=== PATIENT | female | born 1965 | race Hispanic/Latino ===

== ENCOUNTER → 2024-02-04 10:53 | Outpatient (REF) | payer OTHER, SELFPAY ==
--- NOTE | 2024-02-04 11:22 | PN.DIAED06 ---
Meal Plans - Regular
- Meal Plan
Diabetic Meal Plan Name: 1400 calories
Breakfast - Total Carbohydrate (grams): 30
Breakfast - Starch Carbohydrate: 0
Breakfast - Fruit Carbohydrate: 0
Breakfast - Milk Carbohydrate: 0
Breakfast - Nonstarchy Vegetables: Yes
Breakfast - Meat/Protein: 1
Breakfast - Fat: 2
Morning Snack - Total Carbohydrate (grams): 15
Morning Snack - Starch Carbohydrate: 0
Morning Snack - Fruit Carbohydrate: 0
Morning Snack - Milk Carbohydrate: 0
Morning Snack - Nonstarchy Vegetables: Yes
Morning Snack - Meat/Protein: 0.5
Morning Snack - Fat: 0
Lunch - Total Carbohydrate (grams): 30
Lunch - Starch Carbohydrate: 0
Lunch - Fruit Carbohydrate: 0
Lunch - Milk Carbohydrate: 0
Lunch - Nonstarchy Vegetables: Yes
Lunch - Meat/Protein: 2
Lunch - Fat: 1
Afternoon Snack - Total Carbohydrate (grams): 15
Afternoon Snack - Starch Carbohydrate: 0
Afternoon Snack - Fruit Carbohydrate: 0
Afternoon Snack - Milk Carbohydrate: 0
Afternoon Snack - Nonstarchy Vegetables: Yes
Afternoon Snack - Meat/Protein: 0.5
Afternoon Snack - Fat: 0
Dinner - Total Carbohydrate (grams): 30
Dinner - Starch Carbohydrate: 0
Dinner - Fruit Carbohydrate: 0
Dinner - Milk Carbohydrate: 0
Dinner - Nonstarchy Vegetables: Yes
Dinner - Meat/Protein: 2
Dinner - Fat: 1
Evening Snack - Total Carbohydrate (grams): 15
Evening Snack - Starch Carbohydrate: 0
Evening Snack - Fruit Carbohydrate: 0
Evening Snack - Milk Carbohydrate: 0
Evening Snack - Nonstarchy Vegetables: Yes
Evening Snack - Meat/Protein: 0
Evening Snack - Fat: 0
--- NOTE | 2024-02-04 12:42 | PN.DIAED02 ---
Referral
Referred For: Diabetes Self-Management Training
PHI Release Authorization Form Signed: Yes
Care Plan
- Education Needs
Patient Education Needs: Diabetes disease process, Monitoring, Physical activity, Nutritional management
Recommended Diabetes Training Program based on assessment: Individual Appointment
- Plan of Care
Plan of Care:
Soraida chaudhari as a 'holdover' patient, recently diagnosed w/T2DM, A1C 6.6%. Interested in outpt DSME classes. States her insurance prefers either the One TOuch or the Contour Next. Provided with and instructions given on the Contour NExt EZ
glucometer. Initially hesitant to stick herself, she returned demonstrated well and felt 'the stick wasn't that bad'. lancing device set at 2 required much pumping so suggest dialing up to 3. Result 96 mg/dl pre lunch. Aware of proper testing
technique, testing pattern (2x/day) and expected results. Handout with this information provided as well as log sheet. She has an RX for the test strips and lancets from her PCP. Discussed macronutrients and role in glucose metabolism. Provided with
1400 maicol ADA meal plan. She does subscribe to [employer], choosing mostly vegetarian options. She will have this for dinner and for lunch the following day. She has eliminated some of her food items, discussed that she can work these into her meal
plan as it is not sustainable to deprive oneself. For example, she eliminated 2 tsp (9 CHO) from her morning cappuccino which she has with a homemade celery,kailash, [place] and apple juice.(15 gm CHO). Remind her that she will need protein with each
meal and snack, she is limited as she only eats fish, doesn't like tofu, yogurt or cottage cheese. She will try adding some protein powder to her juice. Handout on snack options given.For exercise, she takes her large dog for a walk daily, has a
rowing machine which she is currently not using. She will attempt to start off using it twice weekly. Phone number provided for follow up questions and will send her information in February for DSME classes strting in April.
== END ==
LOC: DES 10:53
PROVIDERS: ATTENDING PHYSICIAN Family Medicine
DX: E11.9 Type 2 diabetes mellitus without complications (principal)
CPT/HCPCS: 99078

== ENCOUNTER → 2024-05-08 12:00 | Outpatient (REF) | payer OTHER, SELFPAY ==
--- NOTE | 2024-04-07 09:08 | PN.DIAED02 ---
Referral
DSME Class Series Code: [id number]
Referred For: Diabetes Self-Management Training
PHI Release Authorization Form Signed: Yes
Patient Problems:
Current Active Problems
Problem Status Onset
Type 2 diabetes mellitus
Demographic
(1) Type 2 diabetes mellitus
Status: Acute Code(s): E11.9 - Type 2 diabetes mellitus without complications
Patient's primary language-: Bulgarian
Education: Advanced college degree
Occupation: Professional (social media designer)
Hours Worked/Week: 20-40 (40)
Shift: Day
- Social
Primary Support Person: Self
Primary Care Takers: Self
Living Arrangements: Self
- Learning Methods
Preferred Method: Group discussion
Barriers to Learning: None
Glycemic Control
- Blood Glucose Monitoring Assessment
Date: 04/06/24
Blood glucose monitoring at home: Yes
Monitor Brands: [employer] (Contour Next)
Frequency: 2x per day
Time: fasting, after breakfast, after lunch, after dinner
- Hemoglobin A1c
Date: 01/17/24
A1C Percentage (%): 6.6
Medical History of Diabetes
Family Diabetes History: Other (paternal aunts and uncles)
Previous Diabetes Education: No
Previous visit with Dietitian: No
Measures
- Anthropometrics
Height: 5 ft 4 in
Actual Weight: 148 lb 8 oz
- Blood Pressure / Pulse
Blood pressure: 108/69
- Diabetes Management
Medical Management for Diabetes: Complete physical exam (01/2024), Dental exam (01/2024), Dilated eye exam (09/30/23), Flu Vaccination (fall 2022), Other (Covid 19 vaccine: 12/06/20,01/01/21 and 08/08/21)
Self-Care
- Tobacco Usage
Do you now, or have you ever smoked?: Never smoked
- Alcohol & Drugs Usage
Drinks Alcohol: Yes
Amount/day: Other (2 drinks/week)
- Meals & Dining
Meals & Dining: Patient skips meals: No, Food Intolerance / Allergy: No, Cultural / Worship Dietary Needs: No
Primary Senior Medical Billing Specialist: Self
Dining Out Frequency: 1-3x per week (3)
- Physical Activity
Physical Limitation: No
Patient participates in physical Activity: Yes
Activity Types: walking
Duration: 10-20 minutes (20)
Frequency: 6-7x per week (7)
Intensity: Easy
- Patient-Self Assessment
Diabetes Knowledge: Poor
Feelings About Diabetes: Adaptation
General Health: Good
Importance of Health: Extremely
Stress Level: Medium
Barriers to Diabetes Management: Family/friends (social activities)
Depression Survey Score: 0
Care Plan
- Education Needs
Patient Education Needs: Diabetes disease process, Chronic complications, Acute complications, Medication, Monitoring, Physical activity, Psychosocial Adjustment, Nutritional management, Goal setting & problem solving
Recommended Diabetes Training Program based on assessment: Outpatient Diabetes Education Program
- Plan of Care
Plan of Care:
Soraida known to me from 02/04/24, seen as a holdover patient. A1C 6.6%, no medications. She has the Contour NExt glucometer and brought in her logsheet. All FBS results are within range and she has been testing 2 hr after breakfast only with all
results within range. Reviewed the testing pattern again, and she will add checking after lunch and after dinner. She asked if she could reduce from testing everyday, recommend continue testing 2x/day but can decrease to 3-4 times/week as her
numbers are all within range. Goals established, will add free weights and the rowing machine (at her home) to her routine. She is having difficulty with finding the time but realizes she can use the machine and weights while watching TV. Also
stating that she is tired and challenging to get up in the morning, she does stay up until midnight, suggest trying to go to bed earlier to get the appropriate hours of sleep. Directions to classroom given.
--- NOTE | 2024-04-07 10:16 | PN.DIAED04 ---
Education Record
- Education Record
Class Attended: Class 1 (pre registration 04/06/24 for outpt DSME classes starting 05/08/24)
DSME Class Series Code: [id number]
Instructor: Registered Nurse (Aretha Wills, RN, BSN, [facility])
Class Curriculum:
Outpatient Diabetes Education Program:
Initial Assessment (45 minutes)
Individualized assessment
Develop personal strategies to promote health and behavior change
Development of diabetes self-management support plan
Class Length (mins): 45
Pre-Program Knowledge: No knowledge
Pre-Test Score (%): 56
Goals
- Goal 1
Being Active: Exercise 30 minutes-5 times per week (continue to walk 20 minutes daily. Will add free weights and use the rowing machine in home.)
Goals To Be Evaluated: Exercise 30 mins-5x/week
- Goal 2
Healthy Eating: Make better food choices
Goals To Be Evaluated: Make better food choices
- Goal 3
Monitoring: Take blood sugar in the prescribed pattern (Handout provided with emphasis on checking after different meals (not just breakfast).)
Goals To Be Evaluated: Test BG-prescribed times
--- NOTE | 2024-05-09 14:15 | PN.DIAED14 ---
This is to notify you that your patient with diabetes, ROSANNE MUÑOZ ( 1965), has enrolled in our diabetes self-management classes that are being held at [facility].
These classes will include an introduction to diabetes, diet, medication, exercise and prevention of complications. At the end of our class series, you will receive a report of your patient's participation and progress for your records.
Please contact me at the Diabetes Center, , if there is any particular information regarding your patient that might be helpful to me.
Sincerely,
VIKAS Davey-, [facility]
Director
Diabetes & Nutrition Services
== END ==
LOC: DES 12:00
PROVIDERS: ATTENDING PHYSICIAN Family Medicine
DX: E11.9 Type 2 diabetes mellitus without complications (principal)
CPT/HCPCS: 99078

== ENCOUNTER → 2024-05-15 12:00 | Outpatient (REF) | payer OTHER, SELFPAY ==
--- NOTE | 2024-05-16 10:47 | PN.DIAED04 ---
Education Record
- Education Record
Class Attended: Class 2
DSME Class Series Code: [id number]
Instructor: Registered Dietitian (Radha Bowen, RD, LDN, CDE)
Class Length (mins): 120
== END ==
LOC: DES 12:00
PROVIDERS: ATTENDING PHYSICIAN Family Medicine
DX: E11.9 Type 2 diabetes mellitus without complications (principal)
CPT/HCPCS: 99078

== ENCOUNTER → 2024-05-22 12:00 | Outpatient (REF) | payer OTHER, SELFPAY ==
--- NOTE | 2024-05-23 13:39 | PN.DIAED04 ---
Education Record
- Education Record
Class Attended: Class 3
DSME Class Series Code: [id number]
Instructor: Registered Dietitian (Radha Bowen, RD, LDN, CDE)
Class Length (mins): 120
Post-Class 2 & 3 Test Score (%): 75
== END ==
LOC: DES 12:00
PROVIDERS: ATTENDING PHYSICIAN Family Medicine
DX: E11.9 Type 2 diabetes mellitus without complications (principal)
CPT/HCPCS: 99078

== ENCOUNTER → 2024-05-29 12:00 | Outpatient (REF) | payer OTHER, SELFPAY | LOC: DES 12:00 | PROVIDERS: ATTENDING PHYSICIAN Family Medicine | DX: E11.9 Type 2 diabetes mellitus without complications (principal) | CPT/HCPCS: 99078 ==

== ENCOUNTER → 2024-06-05 12:00 | Outpatient (REF) | payer OTHER, SELFPAY ==
--- NOTE | 2024-06-06 11:44 | PN.DIAED16 ---
This is to notify you that your patient with diabetes, ROSANNE MUÑOZ ( 1965), has attended the entire series of Diabetes Self-Management Education Classes.
Class 1 (120 minutes): Diabetes Overview - monitoring, stress/psychosocial adjustment, support, goal setting
Class 2 (120 minutes): Meal Planning - serving sizes, menu plans
Class 3 (120 minutes): Introduction to Carbohydrate Counting, Analyzing Food Labels
Class 4 (120 minutes): Medication, Exercise and Activity
Class 5 (120 minutes): Sick Day Management, Strategies to Reduce Complications, Problem Solving, Resources
The following behavioral goals were identified:
Exercise 30 mins-5x/week
Make better food choices
Test BG-prescribed times
A follow-up call will be made within three to six months to evaluate attainment of these goals and to check post-program Hemoglobin A1c and overall progress. All class participants are encouraged to contact me if I can be any further assistance in
learning how to manage their diabetes.
Sincerely,
VIKAS Davey-, [facility]
Director
Diabetes & Nutrition Services
--- NOTE | 2024-06-07 14:50 | PN.DIAED04 ---
Education Record
- Education Record
Class Attended: Class 5
DSME Class Series Code: [id number]
Instructor: Nurse Practitioner (VIKAS Wolff)
Class Curriculum:
Outpatient Diabetes Education Program:
Class 5 (120 minutes)
Prevent, detect, and treat acute complications
Prevent, detect, and treat chronic complications through risk reduction
Develop personal strategies to address psychosocial issues and concerns
Development of diabetes self-management support plan
Letter to physician with DSMS plan attached sent
Class Length (mins): 120
Post-Program Knowledge: Demonstrates competency
Post-Test Score (%): 90
Post-Program Assessment
- Post-Program Assessment
Actual Weight: 65.771 kg
Blood pressure: 119/78
Post-Program Depression Survey Score: 0
Reviewing Previous Goals?: Yes
Pre-Program Depression Survey Score: 0
- Goals 1 Evaluation
Goals To Be Evaluated: Exercise 30 mins-5x/week
- Goals 2 Evaluation
Goals To Be Evaluated: Make better food choices
- Goals 3 Evaluation
Goals To Be Evaluated: Test BG-prescribed times
== END ==
LOC: DES 12:00
PROVIDERS: ATTENDING PHYSICIAN Family Medicine
DX: E11.9 Type 2 diabetes mellitus without complications (principal)
CPT/HCPCS: 99078

== ENCOUNTER → 2024-08-18 13:39 | Outpatient (REF) | payer OTHER, SELFPAY | LOC: WDC 13:39 | PROVIDERS: ATTENDING PHYSICIAN Student in an Organized Health Care Education/Training Program; FAMILY PHYSICIAN Family Medicine | DX: Z12.31 Encounter for screening mammogram for malignant neoplasm of breast (principal) | CPT/HCPCS: 77063; 77067 ==

== ENCOUNTER → 2025-04-10 09:35 | Outpatient (REF) | payer SELFPAY | LOC: HWRAD 09:35 | PROVIDERS: ATTENDING PHYSICIAN Student in an Organized Health Care Education/Training Program | DX: E78.2 Mixed hyperlipidemia (principal) | CPT/HCPCS: 75571 ==

== ENCOUNTER → 2025-04-25 14:10 | Outpatient (REF) | payer OTHER, SELFPAY | LOC: RAD 14:10 | PROVIDERS: ATTENDING PHYSICIAN Student in an Organized Health Care Education/Training Program | DX: Z78.0 Asymptomatic menopausal state (principal); Z13.820 Encounter for screening for osteoporosis; M25.552 Pain in left hip; M25.551 Pain in right hip | CPT/HCPCS: 73522; 77080 ==